=== PATIENT | female | born 1985 | race Caucasian/White ===

== ENCOUNTER 2019-08-07 00:28 | Emergency (ER) | payer BC ==
[~2019-08-07] VITALS: Ht 167.6 cm; Wt 88.5 kg
[2019-08-07] MEDS ORDERED: IBU800 MG PO (00:43)
[2019-08-07] MEDS ORDERED: HYDROXYZINE PAM PO (00:44)
[2019-08-07] MEDS ORDERED: DILAUDID1 MG/1 M1 PO (00:44)
[2019-08-07] MEDS ORDERED: ZANTAC 150MG T150 MG PO (00:46)
[2019-08-07] MEDS ORDERED: CLONIDINE HCL0.2 M2 PO (00:47)
[2019-08-07] MEDS ORDERED: ZANAFLEX4 M2 PO (00:47)
[2019-08-07] MEDS ORDERED: FLONASE 0.05%50 MCG NARES (00:51)
[2019-08-07] MEDS ORDERED: SLOW FE142 MG PO (00:51)
[2019-08-07] MEDS ORDERED: GRALISE300 MG PO (00:52)
[2019-08-07] MEDS ORDERED: IPRATROPIUM BRO30 ML INH (00:54)
[2019-08-07] MEDS ORDERED: MOVANTIK25 MG PO (00:54)
[2019-08-07] MEDS ORDERED: PROAIR HFA8.5 GM INH (00:56)
[2019-08-07] MEDS ORDERED: MAPAP500 M1 PO (00:56)
[2019-08-07] MEDS ORDERED: NORVASC 2.5 MG2.5 M1 PO (00:57)
[2019-08-07] MEDS ORDERED: AMITRIPTYLINE100 MG PO (00:57)
[2019-08-07] MEDS ORDERED: WELLBUTRIN XL150 MG PO (00:58)
[2019-08-07] MEDS ORDERED: COLACE100 MG PO (00:59)
[2019-08-07] MEDS ORDERED: BENADRYL25 MG PO (00:59)
[2019-08-07] MEDS ORDERED: PROTONIX40 M4 PO (01:00)
[2019-08-07] MEDS ORDERED: ZOFRAN4 MG PO (01:00)
[2019-08-07] MEDS ORDERED: LYRICA150 MG PO (01:01)
[2019-08-07] MEDS ORDERED: RAYOS5 MG PO (01:01)
[2019-08-07] MEDS ORDERED: PHENERGAN 25 MG25 M1 PO (01:02)
[2019-08-07] MEDS ORDERED: COMPAZINE10 MG PO (01:02)
[2019-08-07] MEDS ORDERED: TRANSDERM-SCOP1 EACH TRANSDERM (01:03)
[2019-08-07] MEDS ORDERED: CARAFATE 1 GM TA1 GM PO (01:04)
[2019-08-07] MEDS ORDERED: ONZETRA XSAIL11 MG PO (01:04)
[2019-08-07] MEDS ORDERED: TIZANIDINE HCL6 MG PO (01:05)
[2019-08-07] MEDS ORDERED: TRAMADOL 50 MG50 MG PO (01:05)
[2019-08-07 01:53] LABS: URINE BILIRUBIN NEGATIVE (Negative); URINE BLOOD 2+ (Negative); URINE CLARITY CLEAR; URINE COLOR YELLOW; URINE GLUCOSE-RANDOM NEGATIVE (Negative); URINE KETONES NEGATIVE (Negative); URINE LEUKOCYTES-REFLEX NEGATIVE (Negative); URINE NITRITE-REFLEX NEGATIVE (Negative); URINE PROTEIN NEGATIVE (Negative); URINE SPECIFIC GRAVITY <= 1.005 (1.005-1.030); URINE UROBILINOGEN 0.2 E.U./dl (0.2-1.0)
[2019-08-07 02:01] LABS: CASTS None Seen /LPF (None Seen); SQUAMOUS 4-10 Moderate /LPF (0-3)
[2019-08-07 02:03] LABS: CRYSTALS None Seen /LPF (None Seen); URINE RBC 0-2 Rare /HPF (0-2); URINE WBC-REFLEX 0-5 Rare /HPF (0-5)
[2019-08-07 02:04] LABS: YEAST-REFLEX Present (None Seen)
[2019-08-07 05:39] VITALS: BP 152/85
== END 2019-08-07 05:39 | disposition home or self-care (01) ==
LOC: M.ERS 00:28
PROVIDERS: Emergency Medicine
DX: R42 Dizziness and giddiness (principal); I10 Essential (primary) hypertension; E11.9 Type 2 diabetes mellitus without complications; G43.909 Migraine, unspecified, not intractable, without status migrainosus; J45.909 Unspecified asthma, uncomplicated; Z88.7 Allergy status to serum and vaccine; Z88.0 Allergy status to penicillin; Z88.5 Allergy status to narcotic agent; Z88.8 Allergy status to other drugs, medicaments and biological substances; Z88.1 Allergy status to other antibiotic agents; Z91.040 Latex allergy status

== ENCOUNTER → 2019-12-24 | Outpatient (CLI) | payer BC | LOC: M.PC 04:26 | DX: M51.16 Intervertebral disc disorders with radiculopathy, lumbar region (principal); M54.5 Low back pain; M54.2 Cervicalgia; M79.622 Pain in left upper arm; M79.621 Pain in right upper arm; M79.662 Pain in left lower leg; M79.661 Pain in right lower leg ==

== ENCOUNTER 2020-01-06 15:26 | Observation (INO) | payer BC ==
[~2020-01-06] VITALS: Ht 167.6 cm; Wt 104.3 kg
[~2020-01-06 15:26] MED LIST: AMITRIPTYLINE100 MG PO; BENADRYL25 MG PO; CARAFATE 1 GM TA1 GM PO; CLONIDINE HCL0.2 M2 PO; COLACE100 MG PO; COMPAZINE10 MG PO; DILAUDID1 MG/1 M1 PO; FLONASE 0.05%50 MCG NARES; GRALISE300 MG PO; HYDROXYZINE PAM PO; IBU800 MG PO; IPRATROPIUM BRO30 ML INH; LYRICA150 MG PO; MAPAP500 M1 PO; MOVANTIK25 MG PO; NORVASC 2.5 MG2.5 M1 PO; ONZETRA XSAIL11 MG PO; PHENERGAN 25 MG25 M1 PO; PROAIR HFA8.5 GM INH; PROTONIX40 M4 PO; RAYOS5 MG PO; SLOW FE142 MG PO; TIZANIDINE HCL6 MG PO; TRAMADOL 50 MG50 MG PO; TRANSDERM-SCOP1 EACH TRANSDERM; WELLBUTRIN XL150 MG PO; ZANAFLEX4 M2 PO; ZANTAC 150MG T150 MG PO; ZOFRAN4 MG PO
[2020-01-06 15:31] VITALS: BP 135/72
[2020-01-06] MEDS ORDERED: AMITRIPTYLINE H50 M2 PO (15:36)
[2020-01-06] MEDS ORDERED: LYRICA25 MG PO (15:37)
[2020-01-06] MEDS ORDERED: NEURONTIN 300M300 M2 PO (15:37)
[2020-01-06] MEDS ORDERED: ZANAFLEX2 M1 PO (15:37)
[2020-01-06] MEDS ORDERED: VITAMIN D21250 MC1 PO (15:37)
[2020-01-06] MEDS ORDERED: PLAQUENIL200 MG PO (15:38)
[2020-01-06] MEDS ORDERED: ZOFRAN4 MG PO (15:38)
[2020-01-06] MEDS ORDERED: PROTONIX40 M2 PO (15:38)
[2020-01-06] MEDS ORDERED: LOPERAMIDE2 MG PO (15:38)
[2020-01-06] MEDS ORDERED: KAPVAY0.1 MG PO (15:38)
[2020-01-06 16:29] LABS: ABSOLUTE BASOPHILS 0.1 thou/uL (0.0-0.2); ABSOLUTE EOSINOPHILS 0.5 thou/uL (0.0-0.7); ABSOLUTE LYMPHOCYTES 2.1 thou/uL (0.8-5.3); ABSOLUTE MONOCYTES 0.7 thou/uL (0.0-1.2); ABSOLUTE NEUTROPHILS 4.1 thou/uL (1.6-8.1); EOSINOPHILS 6.6 %; HEMATOCRIT 31.5 % (37.0-47.0); HEMOGLOBIN 10.4 gm/dL (12.0-15.0); LYMPHOCYTES 27.9 %; MCH 25.8 pg (26.0-34.0); MCHC 32.9 g/dL (28.0-37.0); MCV 78.4 fL (80.0-100.0); MONOCYTES 9.4 %; NUCLEATED RBCS 0 /100WBC; PLATELET COUNT* 316 thou/uL (150-400); POLYS 55.1 %; RBC 4.02 mil/uL (4.20-5.00); RDW-CV 13.4 % (10.5-14.5); WBC 7.5 thou/uL (4.0-11.0)
[2020-01-06 16:38] LABS: CALCIUM 8.5 mg/dL (8.5-10.1); POTASSIUM 3.7 mmol/L (3.5-5.1)
[2020-01-06 16:42] LABS: ALBUMIN 3.9 g/dL (3.4-5.0); TOTAL BILIRUBIN 0.3 mg/dL (<0.1-1.0); TOTAL PROTEIN 6.9 g/dL (6.4-8.2)
[2020-01-06 17:16] LABS: URINE BILIRUBIN NEGATIVE (Negative); URINE BLOOD NEGATIVE (Negative); URINE CLARITY CLEAR; URINE COLOR YELLOW; URINE GLUCOSE-RANDOM NEGATIVE (Negative); URINE KETONES NEGATIVE (Negative); URINE LEUKOCYTES-REFLEX NEGATIVE (Negative); URINE NITRITE-REFLEX NEGATIVE (Negative); URINE PROTEIN 1+ (Negative); URINE SPECIFIC GRAVITY >= 1.030 (1.005-1.030); URINE UROBILINOGEN 0.2 E.U./dl (0.2-1.0)
[2020-01-06 17:24] LABS: AMP/METHAMP Negative (Negative); BARBITURATES Negative (Negative); BENZODIAZEPINES Negative (Negative); COCAINE Negative (Negative); METHADONE Negative (Negative); OPIATES Negative (Negative); PCP Negative (Negative); THC Negative (Negative)
[2020-01-06 20:51] VITALS: BP 140/85
[2020-01-06 22:00] VITALS: BP 113/63
[2020-01-06] MEDS ORDERED: NORVASC 2.5 MG2.5 M1 PO (22:29)
[2020-01-06] MEDS ORDERED: DICYCLOMINE HCL20 MG PO (22:33)
[2020-01-06] MEDS ORDERED: WELLBUTRIN 100100 MG PO (22:35)
[2020-01-06] MEDS ORDERED: COLACE 100 MG100 MG PO (22:36)
[2020-01-06] MEDS ORDERED: HYDROXYZINE PA100 MG PO (22:45)
[2020-01-06] MEDS ORDERED: ADVIL200 M1 PO (22:47)
[2020-01-07] VITALS: BP 122/51
[2020-01-07] MEDS ORDERED: CLONIDINE HCL0.2 M2 PO (00:51)
[2020-01-07 04:00] VITALS: BP 128/72
[2020-01-07 08:00] VITALS: BP 125/62
--- NOTE | 2020-01-07 10:43 | EKG ---
[place] [address] ELECTROCARDIOGRAM REPORT Name: GALEN MORRIS Room: [address]#: [id number] Admission: 01/06/20 Attend Phys: Kelly Hurley, Discharge: Date of : 81 Date of Service: 01/06/20 1557 Report #: [id number] THIS REPORT FOR: //name// [facility] ED Test Date: 2020-01-06 Test Time: 15:57:20 Pat Name: GALEN MORRIS Department: Room: [facility] Gender: F Quality Assurance Qa Lab Technician: ERICK : 1985 Requested By: Lopez Mcclure Order Number: [id number] MD: Izaiah Lopez Measurements Intervals [place] Rate: 98 P: 14 UT: 150 QRS: 36 QRSD: 86 T: -11 QT: 420 QTc: 537 Interpretive Statements Sinus rhythm Low voltage, precordial leads Borderline T abnormalities, diffuse leads Prolonged QT interval No previous ECG available for comparison Electronically Signed On 01-07-2020 10:43:06 CDT by Izaiah Lopez [email or web address] <ELECTRONICALLY SIGNED> By: Izaiah Lopez MD, FAC 01/07/20 1043 1557 1557 Izaiah Lopez MD, [facility] /EPI
--- NOTE | 2020-01-07 10:51 | EKG ---
[place] [address] ELECTROCARDIOGRAM REPORT Name: GALEN MORRIS Room: [address]#: [id number] Admission: 01/06/20 Attend Phys: Kelly Hurley, Discharge: Date of : 81 Date of Service: 01/07/20 1020 Report #: [id number] THIS REPORT FOR: //name// [facility] Test Date: 2020-01-07 Test Time: 10:20:39 Pat Name: GALEN MORRIS Department: Room: [address] Gender: F Conveyor Worker: GIRMA : 1985 Requested By: Chapito Nicole Order Number: [id number] Reading MD: Izaiah Lopez Measurements Intervals [place] Rate: 83 P: 31 DC: 170 QRS: 14 QRSD: 107 T: 6 QT: 416 QTc: 489 Interpretive Statements Sinus rhythm Low voltage, precordial leads Borderline T abnormalities, diffuse leads Borderline prolonged QT interval Compared to ECG 01/06/2020 15:57:20 No significant changes Electronically Signed On 01-07-2020 10:51:33 CDT by Izaiah Lopez [email or web address] <ELECTRONICALLY SIGNED> By: Izaiah Lopez MD, [facility] 01/07/20 1051 1020 1020 Izaiah Lopez MD, [facility] /EPI
[2020-01-07 11:22] VITALS: BP 125/62
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
== END 2020-01-07 15:10 | disposition home or self-care (01) ==
LOC: M.ERS 15:26 → M.2W 17:06 → M.TBA-ER 17:06 → M.2W 21:16
PROVIDERS: Emergency Medicine Emergency Medical Services; ADMIT Internal Medicine; ATTEND Internal Medicine
DX: Z03.818 Encounter for observation for suspected exposure to other biological agents ruled out (principal); I45.81 Long QT syndrome; R55 Syncope and collapse; J45.909 Unspecified asthma, uncomplicated; K21.9 Gastro-esophageal reflux disease without esophagitis; G43.909 Migraine, unspecified, not intractable, without status migrainosus; I10 Essential (primary) hypertension; F11.20 Opioid dependence, uncomplicated; G89.29 Other chronic pain; E66.9 Obesity, unspecified; M32.9 Systemic lupus erythematosus, unspecified; Z68.37 Body mass index [BMI] 37.0-37.9, adult; Z79.899 Other long term (current) drug therapy

== ENCOUNTER 2021-06-15 15:01 | Emergency (ER) | payer OTHER ==
[~2021-06-15] VITALS: Ht 167.6 cm; Wt 88.5 kg
[~2021-06-15 15:01] MED LIST changes: +ADVIL200 M1 PO; +AMITRIPTYLINE H50 M2 PO; +COLACE 100 MG100 MG PO; +DICYCLOMINE HCL20 MG PO; +HYDROXYZINE PA100 MG PO; +KAPVAY0.1 MG PO; +LOPERAMIDE2 MG PO; +LYRICA25 MG PO; +NEURONTIN 300M300 M2 PO; +PLAQUENIL200 MG PO; +PROTONIX40 M2 PO; +VITAMIN D21250 MC1 PO; +WELLBUTRIN 100100 MG PO; +ZANAFLEX2 M1 PO
[2021-06-15 18:06] VITALS: BP 189/130
--- NOTE | 2021-06-16 09:59 | EKG ---
[place] [address] ELECTROCARDIOGRAM REPORT Name: GALEN MORRIS Room: [facility]#: [id number] Admission: 06/15/21 Attend Phys: Discharge: 06/15/21 Date of : 81 Date of Service: 06/15/211511 Report #: [id number] THIS REPORT FOR: //name// [facility] ED Test Date: 2021-06-15 Test Time: 15:12:00 Pat Name: GALEN MORRIS Department: Room: Gender: Satellite Tv Technician Installer: : 1985 Requested By: Cj Dobson Order Number: [id number] MD: Marvin Lepe Measurements Intervals [place] Rate: 124 P: 59 DE: 139 QRS: 96 QRSD: 76 T: 21 QT: 332 QTc: 477 Interpretive Statements Sinus tachycardia Consider right ventricular hypertrophy Borderline T abnormalities, diffuse leads Borderline prolonged QT interval Baseline wander in lead(s) II,III,aVR,aVF,V2,V4,V5,V6 Compared to ECG 01/07/2020 10:20:39 Sinus rate has increased T-wave abnormality still present Electronically Signed On 06-16-2021 9:58:47 [employer] by Marvin Lepe [email or web address] <ELECTRONICALLY SIGNED> By: Marvin Lepe MD, [facility] 06/16/21 0958 11 151 Marvin Lepe MD, [facility] /EPI
== END 2021-06-15 18:07 | disposition home or self-care (01) ==
LOC: M.ERS 15:01
DX: R07.89 Other chest pain (principal); I10 Essential (primary) hypertension; J45.909 Unspecified asthma, uncomplicated; G43.909 Migraine, unspecified, not intractable, without status migrainosus; F31.9 Bipolar disorder, unspecified; Z98.890 Other specified postprocedural states; Z79.899 Other long term (current) drug therapy; Z88.8 Allergy status to other drugs, medicaments and biological substances; Z88.6 Allergy status to analgesic agent; Z91.040 Latex allergy status; Z88.1 Allergy status to other antibiotic agents; Z88.5 Allergy status to narcotic agent; Z88.7 Allergy status to serum and vaccine; Z88.0 Allergy status to penicillin; Z88.4 Allergy status to anesthetic agent